=== PATIENT | female | born 1970 | race Caucasian/White ===

== ENCOUNTER 2017-10-07 17:24 | Emergency (ER) | payer BC, SELFPAY ==
[2017-10-07 17:24] VITALS: BP 133/92; PULSE 81; RESP 16; TEMP 36.9; O2SAT 99; BMI 27.1
--- NOTE | 2017-10-07 18:56 | ED.VISSUMM ---
- ER Visit Summary Date of Service: 10/07/17 Chief Complaint: right knee pain/injury History of Present Illness: The patient is a 46 F who presents for injury to the right knee earlier today. All getting out of the back of a pickup truck and landed on her right lower extremity, feeling her knee buckled underneath her. She had severe pain in the knee and has been unable to bear weight. She also is complaining of pain in the thigh and hip. Patient denies any head injury, neck pain, back pain, loss of consciousness or any other symptoms other than the right lower extremity pain. Physical Examination: Patient is awake and alert, well-nourished well-developed sitting in bed in no distress. Appears uncomfortable. Hemodynamically stable. Head is atraumatic normocephalic. Neck is supple. Examination of the lower extremity shows 2+ DP pulses and symmetric. Right lower extremity has tenderness to the medial and lateral knee, swelling and tenderness to the popliteal fossa, patient unable to flex the knee at all secondary to pain. Patient is able to lift the leg off the bed and extension. right foot cool compared to the left foot with delayed cap refill, sensation is intact all dermatomes. No deformities to the hip. No external rotation/internal rotation/shortening or elongation of the right extremity compared to the left. Patient has diffuse weakness secondary to pain with plantar flexion, dorsiflexion and EHL flexion. Test Results: Abnormal Lab Results 10/07/17 10/07/17 10/07/17 19:04 19:04 19:04 WBC 9.3 RBC 4.85 Hgb 14.7 Hct 44.1 MCV 90.9 MCH 30.3 MCHC 33.3 RDW 12.7 RDW Differential 42.0 Plt Count 236 MPV 9.9 Immature Gran % (Auto) 0.100 Neut % (Auto) 66.0 Lymph % (Auto) 25.3 [place] % (Auto) 6.6 Eos % (Auto) 1.7 Baso % (Auto) 0.3 Absolute Neuts (auto) 6.1 Absolute Lymphs (auto) 2.35 Total Counted Not Reportable PT 12.9 INR 1.0 APTT 27.8 Sodium 140 Potassium 3.6 Chloride 104 Carbon Dioxide 28.0 Anion Gap 8 BUN 6 L Creatinine 0.86 Estim Creat Clear Calc 94.33 Est GFR (MDRD) Af Amer 90 Est GFR (MDRD) Non-Af 75 BUN/Creatinine Ratio 6.9 L Glucose 83 Calcium 9.0 Clinical Impression(s) from Imaging Studies Lower Extremity CTA 10/07/17 18:59 IMPRESSION: Normal abdominal aorta and right lower extremity run-off without a hemodynamically significant stenosis. Electronically Signed: Cristhian Esposito MD at 20:08 EDT , Service support , ADDENDUM: 10/07/172200 ADDENDUM: 10/07/172200 No fractures Medications Given Discontinued Medications Hydrocodone Bitart/Acetaminophen ([place] 5mg-325mg) 4 tablet PO UD ONE Stop: 10/07/17 22:32 Last Admin: 10/07/17 22:47 Dose: 4 tablet Sodium Chloride () 1,000 mls @ 999 mls/hr IV .Q1H1M ONE Stop: 10/07/17 20:00 Last Admin: 10/07/17 19:08 Dose: 999 mls/hr Morphine Sulfate () 4 mg IV X1 ONE Stop: 10/07/17 18:57 Last Admin: 10/07/17 19:07 Dose: 4 mg Ondansetron HCl (Zofran) 4 mg IV X1 ONE Stop: 10/07/17 18:57 Last Admin: 10/07/17 19:07 Dose: 4 mg Emergency Department Course and Treatment: Patient presents with significant injury to the right knee after falling off the back of a pickup truck and feeling her knee buckled, with an associated pop. Patient is unsure of the exact nature of the injury, however there is concern for a possible knee dislocation with spontaneous reduction, especially given the fullness in the popliteal fossa, the cool temperature of the foot and the delayed capillary refill. Patient is unable to tolerate a full knee exam but there was no noted with varus or valgus laxity. Unable to test anterior posterior drawer. Patient was given morphine for pain. Because of the concern for vascular injury, a CTA was performed of the right lower extremity. No vascular injury was noted. No bony abnormalities noted. Patient was placed in a knee immobilizer for suspected severe sprain of the knee. She was placed on crutches and made nonweightbearing in the right lower extremity. She was given a prescription for [place], including a home dose pack. Patient is to follow-up with orthopedics. She was discharged home. Treatment Plan: [] Disposition: [] Impression: Severe right knee sprain, right hip contusion This note was generated with [employer] dictation software. It may contain incorrect words, spelling, and punctuation that were not noted in review of the chart prior to signing ED Disposition - Plan for ED Patient: Disposition: Home or Assisted Living Chief Complaint: Lower Extremity Injury Instructions: ED Sprain Knee Prescriptions: Hydrocodone/Acetaminophen [[place] 5-325 Tablet] 1 ea PO 4X/DAY PRN PRN 5 Days #20 tab PRN Reason: Pain Referrals: Gurinder Morales MD [Primary Care Provider] - As Needed Chano Junior MD [STAFF PHYSICIAN] - 3-5 Days Additional Instructions: Wear the knee immobilizer until you follow-up with orthopedics. Use crutches and do not bear any weight on your right lower extremity. Use ibuprofen as needed for pain and the [place] for severe pain. Keep the leg elevated and ice the knee several times a day. If you have any worsening of your condition or any new concerning symptoms, please return immediately to the emergency department for another evaluation.
--- NOTE | 2017-10-07 18:59 | CT_ITS ---
STUDY: CTA OF THE ABDOMINAL AORTA AND RIGHT LOWER EXTREMITY. REASON FOR EXAM: Female, 46 years old. Toes are cold following injury RADIATION DOSAGE (If Supplied By Facility): CTDIvol = ( 93.00 ) mGy, DLP = ( 1395.57 ) mGycm TECHNIQUE: Axial CT angiography multi-detector data acquisition was obtained from the to the following intravenous administration of 100ML ml of Isovue 370 contrast. Axial images and MIP images were reconstructed from the axial data set. Post-processing of the angiographic images was performed, with multiplanar reformation and 3D reconstruction. Individualized dose optimization techniques were used for this CT. TECHNICAL QUALITY: Good COMPARISON: None. Descriptors of Narrowing: None (0%) Mild (< 50%) Moderate (50-70%) Severe (70-90%) Subtotal/Total Occlusion (90-100%) Non-Evaluable (technically non-diagnostic FINDINGS: Abdominal aorta: No demonstrated narrowing. Celiac and superior mesenteric arteries: No demonstrated narrowing. Inferior mesenteric artery: No demonstrated narrowing. Right renal artery(arteries): No demonstrated narrowing. Left renal artery(arteries): No demonstrated narrowing. Right common iliac artery: No demonstrated narrowing. Right external iliac artery: No demonstrated narrowing. Right internal iliac artery: No demonstrated narrowing. Left common iliac artery: No demonstrated narrowing. Left external iliac artery: No demonstrated narrowing. Left internal iliac artery: No demonstrated narrowing. RIGHT LOWER EXTREMITY Right common femoral artery: No demonstrated narrowing. Right profundus femoris: No demonstrated narrowing. Right superficial femoral: No demonstrated narrowing. Right popliteal artery: No demonstrated narrowing. Right tibioperoneal trunk: No demonstrated narrowing. Right anterior tibial artery: No demonstrated narrowing. Right posterior tibial artery: No demonstrated narrowing. Right peroneal artery: No demonstrated narrowing. CT/CTA LWR EXTR W/O & W/DYE IMPRESSION: Normal abdominal aorta and right lower extremity run-off without a hemodynamically significant stenosis. Electronically Signed: Cristhian Esposito MD at 20:08 EDT , Service support ,
--- NOTE | 2017-10-07 18:59 | ED.DCSUM_ITS ---
- ER Visit Summary Date of Service: 10/07/17 Chief Complaint: right knee pain/injury History of Present Illness: The patient is a 46 F who presents for injury to the right knee earlier today. All getting out of the back of a pickup truck and landed on her right lower extremity, feeling her knee buckled underneath her. She had severe pain in the knee and has been unable to bear weight. She also is complaining of pain in the thigh and hip. Patient denies any head injury, neck pain, back pain, loss of consciousness or any other symptoms other than the right lower extremity pain. Physical Examination: Patient is awake and alert, well-nourished well-developed sitting in bed in no distress. Appears uncomfortable. Hemodynamically stable. Head is atraumatic normocephalic. Neck is supple. Examination of the lower extremity shows 2+ DP pulses and symmetric. Right lower extremity has tenderness to the medial and lateral knee, swelling and tenderness to the popliteal fossa, patient unable to flex the knee at all secondary to pain. Patient is able to lift the leg off the bed and extension. right foot cool compared to the left foot with delayed cap refill, sensation is intact all dermatomes. No deformities to the hip. No external rotation/internal rotation/shortening or elongation of the right extremity compared to the left. Patient has diffuse weakness secondary to pain with plantar flexion, dorsiflexion and EHL flexion. Test Results: Abnormal Lab Results 10/07/17 10/07/17 10/07/17 19:04 19:04 19:04 WBC 9.3 RBC 4.85 Hgb 14.7 Hct 44.1 MCV 90.9 MCH 30.3 MCHC 33.3 RDW 12.7 RDW Differential 42.0 Plt Count 236 MPV 9.9 Immature Gran % (Auto) 0.100 Neut % (Auto) 66.0 Lymph % (Auto) 25.3 [place] % (Auto) 6.6 Eos % (Auto) 1.7 Baso % (Auto) 0.3 Absolute Neuts (auto) 6.1 Absolute Lymphs (auto) 2.35 Total Counted Not Reportable PT 12.9 INR 1.0 APTT 27.8 Sodium 140 Potassium 3.6 Chloride 104 Carbon Dioxide 28.0 Anion Gap 8 BUN 6 L Creatinine 0.86 Estim Creat Clear Calc 94.33 Est GFR (MDRD) Af Amer 90 Est GFR (MDRD) Non-Af 75 BUN/Creatinine Ratio 6.9 L Glucose 83 Calcium 9.0 Clinical Impression(s) from Imaging Studies Lower Extremity CTA 10/07/17 18:59 IMPRESSION: Normal abdominal aorta and right lower extremity run-off without a hemodynamically significant stenosis. Electronically Signed: Cristhian Esposito MD at 20:08 EDT , Service support , ADDENDUM: 10/07/172200 ADDENDUM: 10/07/172200 No fractures Medications Given Discontinued Medications Hydrocodone Bitart/Acetaminophen ([place] 5mg-325mg) 4 tablet PO UD ONE Stop: 10/07/17 22:32 Last Admin: 10/07/17 22:47 Dose: 4 tablet Sodium Chloride () 1,000 mls @ 999 mls/hr IV .Q1H1M ONE Stop: 10/07/17 20:00 Last Admin: 10/07/17 19:08 Dose: 999 mls/hr Morphine Sulfate () 4 mg IV X1 ONE Stop: 10/07/17 18:57 Last Admin: 10/07/17 19:07 Dose: 4 mg Ondansetron HCl (Zofran) 4 mg IV X1 ONE Stop: 10/07/17 18:57 Last Admin: 10/07/17 19:07 Dose: 4 mg Emergency Department Course and Treatment: Patient presents with significant injury to the right knee after falling off the back of a pickup truck and feeling her knee buckled, with an associated pop. Patient is unsure of the exact nature of the injury, however there is concern for a possible knee dislocation with spontaneous reduction, especially given the fullness in the popliteal fossa, the cool temperature of the foot and the delayed capillary refill. Patient is unable to tolerate a full knee exam but there was no noted with varus or valgus laxity. Unable to test anterior posterior drawer. Patient was given morphine for pain. Because of the concern for vascular injury , a CTA was performed of the right lower extremity. No vascular injury was noted. No bony abnormalities noted. Patient was placed in a knee immobilizer for suspected severe sprain of the knee. She was placed on crutches and made nonweightbearing in the right lower extremity. She was given a prescription for [place], including a home dose pack. Patient is to follow-up with orthopedics. She was discharged home. Treatment Plan: [] Disposition: [] Impression: Severe right knee sprain, right hip contusion This note was generated with [employer] dictation software. It may contain incorrect words, spelling, and punctuation that were not noted in review of the chart prior to signing ED Disposition - Plan for ED Patient: Disposition: Home or Assisted Living Chief Complaint: Lower Extremity Injury Instructions: ED Sprain Knee Prescriptions: Hydrocodone/Acetaminophen [[place] 5-325 Tablet] 1 ea PO 4X/DAY PRN PRN 5 Days # 20 tab PRN Reason: Pain Referrals: Gurinder Morales MD [Primary Care Provider] - As Needed Chano Junior MD [STAFF PHYSICIAN] - 3-5 Days Additional Instructions: Wear the knee immobilizer until you follow-up with orthopedics. Use crutches and do not bear any weight on your right lower extremity. Use ibuprofen as needed for pain and the [place] for severe pain. Keep the leg elevated and ice the knee several times a day. If you have any worsening of your condition or any new concerning symptoms, please return immediately to the emergency department for another evaluation.
[2017-10-07] MEDS: Morphine 4 MG/ML Syringe IV (19:07)
[2017-10-07] MEDS: Ondansetron 4 MG/2 ML Vial IV (19:07)
[2017-10-07] MEDS: 0.9% Normal Saline 1,000 ML 999 ML IV (19:08)
[2017-10-07 19:17] LABS: Absolute Lymphocyte Count 2.35 X10^3/ul (0.83-4.51); Absolute Neutrophil Count 6.1 X10^3/uL (2.0-7.7); Basophil# 0.03 X10^3/uL; Basophil% 0.3 % (0-1); Eosinophil# 0.16 X10^3/uL; Eosinophils% 1.7 % (0-5); Hematocrit 44.1 % (37-47); Hemoglobin 14.7 g/dl (12.0-15.0); Lymphocyte # 2.35 X10^3/ul (4.0); Lymphocyte % 25.3 % (19-41); Mean Corp Hgb Conc 33.3 g/gl (32-36); Mean Corpuscular Hgb 30.3 pg (27.0-32.0); Mean Corpuscular Volume 90.9 fL (81-99); Mean Platelet Vol. 9.9 fl (6.2-12.0); Monocyte# 0.61 X10^3/uL; Monocyte% 6.6 % (0-10); Neutrophil # 6.14 X10^3/uL (2.7-7.7); Platelet Count 236 K/mm3 (150-450); RBC Distribution Width CV 12.7 % (11.6-14.6); Red Blood Count 4.85 M/mm3 (4.2-5.4); White Blood Count 9.3 K/mm3 (4.4-11.0)
[2017-10-07 19:18] LABS: POSITIVE COUNT NO; POSITIVE DIFFERENTIAL NO; POSITIVE MORPHOLOGY NO
[2017-10-07 19:27] LABS: Prothrombin Time (Protime)PT. 12.9 SECONDS (11.7-14.9)
[2017-10-07 19:28] LABS: Partial Thromboplast Time 27.8 Seconds (24.1-36.2)
[2017-10-07 19:31] LABS: Anion Gap 8 (5-15); BUN 6 mg/dL (7-18); BUN/Creat Ratio 6.9 RATIO (10-20); Chloride 104 mmol/L (98-107); Creatinine, Serum 0.86 mg/dL (0.55-1.02); EST Glomerular Filtration Rate 75 mL/min (>60); Est Glom Filt Rate - Afr Amer 90 mL/min (>60); Estimated Creatinine Clearance 94.33 ml/min; Glucose 83 mg/dL (74-106); Potassium 3.6 mmol/L (3.5-5.1); Sodium Level 140 mmol/L (136-145)
[2017-10-07 21:45] VITALS: BP 150/86; PULSE 63; RESP 18; O2SAT 96
--- NOTE | 2017-10-07 22:32 | ED.DEP ---
ED Disposition - Plan for ED Patient: Disposition: Home or Assisted Living Chief Complaint: Lower Extremity Injury Instructions: ED Sprain Knee Prescriptions: Hydrocodone/Acetaminophen [[place] 5-325 Tablet] 1 ea PO 4X/DAY PRN PRN 5 Days #20 tab PRN Reason: Pain Referrals: Gurinder Morales MD [Primary Care Provider] - As Needed Chano Junior MD [STAFF PHYSICIAN] - 3-5 Days Additional Instructions: Wear the knee immobilizer until you follow-up with orthopedics. Use crutches and do not bear any weight on your right lower extremity. Use ibuprofen as needed for pain and the [place] for severe pain. Keep the leg elevated and ice the knee several times a day. If you have any worsening of your condition or any new concerning symptoms, please return immediately to the emergency department for another evaluation.
[2017-10-07] MEDS: HYDROcodone Bitartrate/Apap 5/325 Tablet PO (22:47)
[2017-10-07 22:52] VITALS: BP 145/78; PULSE 70; RESP 18; O2SAT 97
== END 2017-10-07 22:53 | disposition home or self-care (01) ==
PROVIDERS: Emergency Provider Emergency Medicine; Family Provider Family Medicine; PCP Family Medicine
DX: S83.91XA Sprain of unspecified site of right knee, initial encounter (principal); S70.01XA Contusion of right hip, initial encounter; W17.89XA Other fall from one level to another, initial encounter; Y93.89 Activity, other specified; Y92.812 Truck as the place of occurrence of the external cause
CPT/HCPCS: 73706; 80048; 85025; 85610; 85730; 96361; 96374; 96375; 99285; J7030; Q9967; A4216; J2405